=== PATIENT | male | born 1960 | race African-American/Black ===

== ENCOUNTER 2020-09-18 09:43 | Emergency (ER) | payer BC, OTHER ==
[2020-09-18 09:54] VITALS: BMI 28.5
[2020-09-18] MEDS ORDERED: ACETAMINOPHEN 500 MG TABLET (FP) PO ONE (10:38)
[2020-09-18] MEDS ORDERED: SODIUM CHLORIDE 0.9% 1000 ML INFUS.BAG IV ONE (10:38)
[2020-09-18] MEDS ORDERED: IBUPROFEN 400 MG TABLET (FP) PO ONE ×2 (10:39→10:47)
[2020-09-18] MEDS ORDERED: ACETAMINOPHEN 500 MG TABLET (FP) ONE (10:47)
[2020-09-18 11:13] LABS: BASO % 0.3 % (0-2.0); EOS % 0.1 % (0-4.5); HEMATOCRIT 40.3 % (35.4-49); HEMOGLOBIN 12.7 GM/dL (11.7-16.9); LYMPH % 15.9 % (8-40); MCH 23.2 pg (25.7-33.7); MCHC 31.4 g/dl (32.0-35.9); MEAN CELL VOLUME 73.7 fl (80-96); MEAN PLT VOLUME 8.6 fl (7.5-11.1); MONO % 11.4 % (3.8-10.2); NEUT % 72.3 % (42.8-82.8); PLATELET COUNT 135 10^3/uL (134-434); RBC 5.47 M/mm3 (4.00-5.60); RDW 18.6 % (11.9-15.9); WHITE BLOOD COUNT 5.5 K/mm3 (4.0-10.0)
[2020-09-18 11:36] LABS: ALBUMIN 3.9 g/dl (3.4-5.0); CALCIUM 8.5 mg/dL (8.5-10.1)
[2020-09-18 11:37] LABS: BLOOD UREA NITROGEN 12.9 mg/dL (7-18)
[2020-09-18 11:40] LABS: CREATININE 1.1 mg/dL (0.55-1.3)
[2020-09-18 11:41] LABS: BILIRUBIN,TOTAL 0.7 mg/dL (0.2-1)
[2020-09-18 11:52] LABS: ERYTHROCYTE SEDIMENTATION RATE 29 mm/hr (0-20)
[2020-09-18 12:03] VITALS: BP 139/82; PULSE 96; TEMP 99.3
== END 2020-09-18 12:15 | disposition home or self-care (01) ==
LOC: JER 09:43
DX: M79.674 Pain in right toe(s) (principal)
CPT/HCPCS: 36415; 73630-TC-RT-FY; 80053; 83605; 85025; 85651; 86140; 99284-25

== ENCOUNTER 2022-04-08 08:35 | Emergency (ER) | payer BC, OTHER ==
[2022-04-08 08:52] VITALS: RESP 18; BMI 32.4
[2022-04-08] MEDS ORDERED: ACETAMINOPHEN 500 MG TABLET (FP) PO ONE (09:14)
[2022-04-08] MEDS ORDERED: ACETAMINOPHEN 500 MG TABLET (FP) ONE (09:29)
[2022-04-08 12:10] VITALS: BP 146/85; PULSE 110; TEMP 99.2
== END 2022-04-08 12:13 | disposition home or self-care (01) ==
LOC: JER 08:35
DX: S99.911A Unspecified injury of right ankle, initial encounter (principal); W10.8XXA Fall (on) (from) other stairs and steps, initial encounter
CPT/HCPCS: 73610-TC-RT-FY; 73630-TC-RT-FY; 99283-25

== ENCOUNTER 2023-08-10 10:46 | Emergency (ER) | payer BC, OTHER ==
[2023-08-10 10:57] VITALS: PULSE 96; RESP 18; TEMP 98
[2023-08-10 12:43] VITALS: BP 132/74; BMI 29.8
[2023-08-10] MEDS ORDERED: AMOX TR/POT CLAV 875MG/125MG TABLETS (FP) ONE (13:41)
[2023-08-10] MEDS ORDERED: DEXAMETHASONE 4 MG TABLET (FP) ONE (13:42)
[2023-08-10] MEDS: DEXAMETHASONE SOD PHOSPHATE 10 MG/1 ML VIAL PO ONE (14:04)
[2023-08-10] MEDS: AMOX TR/POT CLAV 875MG/125MG TABLETS (FP) PO ONE (14:05)
== END 2023-08-10 14:07 | disposition home or self-care (01) ==
LOC: JER 10:46
DX: J36 Peritonsillar abscess (principal)
CPT/HCPCS: 99283-25; J1100